=== PATIENT | female | born 1955 | race Caucasian/White ===

== ENCOUNTER 2017-03-20 15:43 | Observation (INO) ==
--- NOTE | 2017-03-20 16:38 | Emergency Department Note ---
Arrival - Arrival Chief Complaint: GI Bleed/Rectal Stated Complaint: BLOOD ED Nursing Triage Note: Pt c/o bright red blood in her stool started this am. Pt denies abd pain. Pt had C-scope on Friday. Mode of Arrival: Ambulatory Limitations: No Limitations Source: Patient Time Seen by Provider: 03/20/17 16:31 - History of Present Illness HPI Narrative: This 61-year-old white female presents with a history of 3 bloody bowel movements during the course today. Patient has a notable history of colon cancer status post resection and chemotherapy with subsequent colonoscopy [address] Agrawal which revealed no evidence of recurrence. Also notable on colonoscopy was recurrence of cecal polyps were which were removed as well as mild left-sided diverticulosis. More significant is the finding of internal hemorrhoids. Other than the bleeding the patient has no complaints whatsoever and is stable medically at this time.. Onset (ago): hour(s) (Onset 10 hours ago) Allergies/Adverse Reactions: Allergies Allergy/AdvReac Type Severity Reaction Status Date / Time naproxen [From Aleve] Allergy ANAPHYLAXIS Verified 11/22/16 13:17 Tetanus Vaccines and Toxoid Allergy ANAPHYLAXIS Verified 11/22/16 13:17 [Tetanus Vaccines & Toxoid] Home Medications: Home Medications Medication Instructions Recorded Confirmed Type Methocarbamol Tab [Robaxin Tab] 750 - 1,500 mg PO BID 04/04/16 03/20/17 History Ropinirole HCl 0.5 - 1 mg PO BEDTIME 06/04/16 03/20/17 History Allopurinol 100 mg PO QAM 03/06/17 03/20/17 History predniSONE TAB [PredniSONE] 5 - 7 mg PO QAM 03/06/17 03/20/17 History Acetaminophen [Pain Relief] 500 mg PO Q8H PRN MDD 3gm 03/14/17 03/20/17 History Gabapentin 100 - 400 mg PO BEDTIME 03/14/17 03/20/17 History Methotrexate Sodium/Pf 15 mg IM MO 03/20/17 03/20/17 History [Methotrexate 200 mg/8 ml Vial] Review of System - Review of System 12 point system: reviewed and no additional remarkable complaints except as stated - Review of System Constitutional: Present: as per HPI Gastrointestinal: Present: as per HPI Medical,Surgical,& Family Hx - Medical History Neurology: History of: Migraine No history of: Seizures HEENT: History of: Eye Problem (Wears glasses), Dental Problems (DENTURES) Rheumatology: History of;: Gout, Rheumatoid Arthritis Genitourinary: History of: Kidney Stones No history of: Bladder Problem Gastrointestinal: History of: Diverticulitis/ Diverticulosis, Esophageal Varices , GERD, Gastrointestinal Bleed, Hematochezia, Gastrointestinal Cancer, GI Problems (Anal stricture) Musculoskeletal: History of: Back/Neck Problems (Neck pain), Musculoskeletal Problems Hematology: History of: Anemia Other: History of: Cancer (Hx: Colon cancer) - Surgical History Cardiac Surgeries: Patient Denies: Cardiac Catheterization HEENT Surgeries: Surgical HX of: Tonsilectomy & Adenoidectomy Patient denies: Eye Surgery Abdominal Surgeries: Surgical HX of: Abdominal Surgery (COLON ILLEOSTOMY REVERSABLE), Colonoscopy Patient denies: Appendectomy, Cholecystectomy, Gastric Bypass Surgery, EGD, Hernia Repair Reproductive Surgeries: Surgical HX of;: Dilation and Curettage, Gynecologic Surgery, Hysterectomy, Tubal Ligation Patient denies;: Genitourinary Surgery Orthopedic Surgeries: Surgical HX of;: Orthopedic Surgery, Total Knee Replacement (BLE KNEE) - Family History Family History: Reports;: Family Cancer (brother), Family Diabetes (mother), Family Heart Disease (father), Family Stroke (Father) Denies;: Family Anesthesia Reaction, Family Hypertension, Family Psychiatric Problems - Social History Smoking Status: Never smoker Exam Physical Examination: GENERAL: Well developed, well nourished elderly white female in no acute distress. HEENT: Normocephalic. No trauma. Moist mucous membranes. EOMI. PERRLA. ENT NML NECK: Supple. No adenopathy. CARDIAC: Regular. No murmurs. Heart rate 90 CHEST: Clear to auscultation. No respiratory distress. O2 saturation 99% ABDOMEN: Soft. Nontender. Active bowel sounds. Abdomen benign at this time EXTREMITIES: No trauma. Normal ROM. No pedal edema. SKIN: No diaphoresis. No rash. NEURO: Alert. Neuro intact no focal deficits. Vital Signs: Vital Signs Temperature 97.3 F L 03/20/17 16:47 Pulse Rate 90 03/20/17 16:47 Respiratory Rate 16 03/20/17 16:47 Blood Pressure 151/106 03/20/17 16:47 O2 Sat by Pulse Oximetry 100 03/20/17 17:17 Course - Reevaluation(s) Reevaluation #1: Advised patient she would need hospitalization for overnight observation. - Consultations Consultation #1: Discussed with Dr. Enciso who advised overnight observation, but felt this was more likely a bleed post biopsy that generally occurs at this point in time with sloughing of a clot. Consultation #2: Discussed with Dr. Nicolas who deferred to the hospitalist as there was no oncologic problem at this time. Consultation #3: Discussed with hospitalist who will admit for further evaluation treatment peer Results - Labs CBC & BMP: 03/20/17 17:04 03/20/17 17:18 Labs: I reviewed the lab and noted the mild anemia. - Impressions EKG: Sinus rhythm at 82. Normal TX interval and QRS duration. Nonspecific ST changes noted. No acute injury pattern noted. - Diagnostic Findings Procedure: Chest x-ray: image reviewed by me, report reviewed by me (Normal chest) Disposition Clinical Impression: Lower GI bleed, Adeno CA of the colon treated Case discussed with: patient, patient's family Disposition: Still a Patient Condition: Guarded Time of Disposition: 18:29
--- NOTE | 2017-03-20 17:02 | XRay Report ---
2 view chest 03/20/2017 4:33 PM Indication: Shortness of breath Comparison: CT performed on March 03, 2017 0808 hours Findings: Cardiomediastinal contours are stable with no change in tube or line placement. Lungs are clear bilaterally. . No acute osseous abnormalities. Visualized upper abdomen demonstrates no acute pathology. Impression: No acute cardiopulmonary findings PROCEDURE INTERPRETED AT [facility] DEPARTMENT OF RADIOLOGY Final Report Signed by: Gerber Dillon
[2017-03-20 17:20] LABS: Basophils % 0.2 % (0.0-0.8); Hematocrit 35.4 VOL% (35.7-47.0); Hemoglobin 12.2 GM/DL (12.0-16.0); Immature Granulocytes % 0.2 %; Immature Granulocytes Absolute 0.01 #; Lymphocytes # 1.6 10*3/uL (1.4-4.0); Lymphocytes % 26.1 % (21.3-54.2); Mean Corpuscular HGB Conc 34.5 GM/DL (32-36); Mean Corpuscular Hemoglobin 30 PG (27-34); Mean Corpuscular Volume 86.8 FL (87-102); Mean Platelet Volume 10.3 FL (9.6-12.0); Monocytes # 0.3 10*3/uL (0.11-0.8); Monocytes % 5.4 % (1.7-12.7); Neutrophils # 4.2 10*3/uL (1.4-7.4); Neutrophils % 68.1 % (38.7-73.9); Platelet Count 181 T/CUMM (130-400); Red Blood Count 4.08 MC/CUMM (3.8-5.5); Red Cell Distribution Width 13.3 % (9.3-17.3); White Blood Count 6.1 T/CUMM (4-12)
--- NOTE | 2017-03-20 17:26 | EKG Report ---
Stationary ECG Study [facility] ER Test Date: 03/20/2017 5:25:28 PM Pat Name: CASSIE MADERA Department: Room: Gender: F [employer] Operator: : [id number] Requested by: Richard Donaldson Order Number: [id number] Reading MD: JENNIE MICHAUD Intervals [place] Rate: 82 P: 64 TX: 176 QRS: 80 QRSD: 92 T: -5 QT: 365 QTc: 403 Interpretive Statements SINUS RHYTHM Electronically Signed On 03-20-17 20:33:33 CDT by JENNIE MICHAUD [email or web address]
[2017-03-20 17:31] LABS: PT Patient Result 10.5 SECS
[2017-03-20 17:42] LABS: Partial Thromboplastin Time 51.2 SECS (0-40)
[2017-03-20 17:53] LABS: Alanine Aminotransferase 18 U/L (13-56); Albumin 3.4 G/DL (3.4-5.0); Alkaline Phosphatase 110 U/L (45-117); Aspartate Amino Transferase 12 U/L (0-37); Bilirubin,Total < 0.39 MG/DL (0.2-1.0); Blood Urea Nitrogen 20 MG/DL (7-18); Calcium 8.6 MG/DL (8.5-10.1); Glucose 129 MG/DL (74-106); Osmolality,Calculated 283.4 MOS/KG (273-304); Potassium 3.6 MMOL/L (3.5-5.1); Sodium 140 MMOL/L (136-145); Total Protein 6.8 G/DL (6.4-8.3); Troponin I Only < 0.015 NG/ML (0.00-0.045)
[2017-03-20] MEDS ORDERED: ACETAMINOPHEN 325 MG TABLET PO PRN (19:04)
[2017-03-20] MEDS ORDERED: ACETAMINOPHEN 500 MG TABLET PO PRN (19:09)
--- NOTE | 2017-03-20 19:16 | Hospitalist History & Physical ---
Assessment and Plan (1) GI bleed Status: Acute Current Visit: Yes (2) Arthritis Status: Acute Current Visit: Yes (3) Cancer of rectosigmoid (colon) Status: Acute Assessment and plan: Our plan for this patient 1. Admit the patient our service 2. GI consult 3. Surgery consult 4. H&H every 6 hours 3 8 5. Repeat labs in the morning 6. Reevaluate patient in the morning and adjust plans as appropriate Current Visit: No History of Present Illness Chief complaint: GIB History of present illness: Ms. Castro is a 61 year old female with past medical history significant for colon cancer and arthritis who is her normal state of health till today. Patient had a C scope done last Friday. She had multiple polyps removed at this time. 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 Patient had anastomosis May 2016 and was rechecked after initial recent section. Recent CT scan shows possible recurrence of cancer and that was the purpose of a colonoscopy at that time. Patient also has an appointment with Dr. Anaya Friday for surgical evaluation. Today she reports that with her bowel movements that she had blood in them. She called Dr. Wilson's office who is her oncologist and they recommend she come up to the ER for further evaluation. She is hemodynamically stable and I am admitting her for observation. Home Medications Medication Instructions Recorded Confirmed Type Methocarbamol Tab [Robaxin Tab] 750 - 1,500 mg PO BID 04/04/16 03/20/17 History Ropinirole HCl 0.5 - 1 mg PO BEDTIME 06/04/16 03/20/17 History Allopurinol 100 mg PO QAM 03/06/17 03/20/17 History predniSONE TAB [PredniSONE] 5 - 7 mg PO QAM 03/06/17 03/20/17 History Acetaminophen [Pain Relief] 500 mg PO Q8H PRN MDD 3gm 03/14/17 03/20/17 History Gabapentin 100 - 400 mg PO BEDTIME 03/14/17 03/20/17 History Methotrexate Sodium/Pf 15 mg IM MO 03/20/17 03/20/17 History [Methotrexate 200 mg/8 ml Vial] Allergies Allergy/AdvReac Type Severity Reaction Status Date / Time naproxen [From Aleve] Allergy ANAPHYLAXIS Verified 11/22/16 13:17 Tetanus Vaccines and Toxoid Allergy ANAPHYLAXIS Verified 11/22/16 13:17 [Tetanus Vaccines & Toxoid] Medical,Surgical,& Family Hx - Medical History Neurology: History of: Migraine No history of: Seizures HEENT: History of: Eye Problem (Wears glasses), Dental Problems (DENTURES) Rheumatology: History of;: Gout, Rheumatoid Arthritis Genitourinary: History of: Kidney Stones No history of: Bladder Problem Gastrointestinal: History of: Diverticulitis/ Diverticulosis, Esophageal Varices , GERD, Gastrointestinal Bleed, Hematochezia, Gastrointestinal Cancer, GI Problems (Anal stricture) Musculoskeletal: History of: Back/Neck Problems (Neck pain), Musculoskeletal Problems Hematology: History of: Anemia Other: History of: Cancer (Hx: Colon cancer) - Surgical History Cardiac Surgeries: Patient Denies: Cardiac Catheterization HEENT Surgeries: Surgical HX of: Tonsilectomy & Adenoidectomy Patient denies: Eye Surgery Abdominal Surgeries: Surgical HX of: Abdominal Surgery (COLON ILLEOSTOMY REVERSABLE), Colonoscopy Patient denies: Appendectomy, Cholecystectomy, Gastric Bypass Surgery, EGD, Hernia Repair Reproductive Surgeries: Surgical HX of;: Dilation and Curettage, Gynecologic Surgery, Hysterectomy, Tubal Ligation Patient denies;: Genitourinary Surgery Orthopedic Surgeries: Surgical HX of;: Orthopedic Surgery, Total Knee Replacement (BLE KNEE) - Family History Family History: Reports;: Family Cancer (brother), Family Diabetes (mother), Family Heart Disease (father), Family Stroke (Father) Denies;: Family Anesthesia Reaction, Family Hypertension, Family Psychiatric Problems - Social History Smoking Status: Never smoker Frequency of Alcohol Use: None Type of Drug Use: None 12 point system: reviewed and no additional remarkable complaints except as stated Exam - Constitutional Vitals: Period Temp Pulse Resp BP Sys/Gonsalez Pulse Ox Last 24 Hr 97.3 F-97.3 F 90-90 16-16 151-151/106-106 99-100 General appearance: over weight - Head Head exam: Present: normal inspection - Eye Eye exam: Present: EOMI Pupils: Present: KANNAN - ENT ENT exam: Present: normal exam - Neck Neck exam: Present: normal inspection - Respiratory Respiratory exam: Present: clear to auscultation bilaterally - Cardiovascular Cardiovascular exam: Present: regular rate and rhythm - GI/Abdominal GI/Abdominal exam: Present: normal bowel sounds - Extremities Exam Extremities exam: Present: normal inspection - Back Exam Back exam: Present: normal inspection - Neurological Exam Neurological exam: Present: alert, oriented X3 - Psychiatric Psychiatric exam: Present: normal affect, normal mood - Skin Skin exam: Present: normal color Results - Labs CBC & BMP: 03/20/17 17:04 03/20/17 17:18 Quality Measures - VTE Contraindication to Pharmacological VTE Prophylaxis: Active Bleeding
[2017-03-20] MEDS ORDERED: rOPINIRole 0.25 MG TABLET PO SCH (21:00)
[2017-03-20] MEDS ORDERED: GABAPENTIN 100 MG CAPSULE PO SCH (21:00)
[2017-03-21 00:51] LABS: Hematocrit 32.5 VOL% (35.7-47.0); Hemoglobin 11.2 GM/DL (12.0-16.0)
[2017-03-21 08:07] LABS: Hemoglobin 11.8 GM/DL (12.0-16.0)
[2017-03-21 08:40] LABS: Calcium 8.7 MG/DL (8.5-10.1); Osmolality,Calculated 282.3 MOS/KG (273-304)
[2017-03-21] MEDS ORDERED: PANTOPRAZOLE 40 MG TABLET PO SCH (09:00)
[2017-03-21] MEDS ORDERED: ALLOPURINOL 100 MG TABLET PO SCH (09:00)
[2017-03-21] MEDS ORDERED: predniSONE 5 MG TABLET PO SCH (09:00)
[2017-03-21 11:17] LABS: Hematocrit 34.4 VOL% (35.7-47.0); Hemoglobin 11.7 GM/DL (12.0-16.0)
--- NOTE | 2017-03-21 11:21 | Gastrointestinal Consult Note ---
Assessment and Plan (1) GI bleed Status: Acute Assessment and plan: Patient is likely to have bleeding from 1 of 3 areas: Either the rectal dilation that was done at the beginning of the case by anal dilator, the biopsies taken from the anastomotic site which failed to show any cancer, or post polypectomy bleed from the cecum that was removed by hot snare polypectomy. I suspect the latter especially if the patient was taking any sort of anti-inflammatory agents which she is denying at this time. She is certainly been stable during her hospital stay and could be discharged at this time. I would like to obtain a tagged red blood cell scan to make sure that this is negative prior to letting her go out the door. If positive this may show where the bleeding is coming from, likely would still watch her and see if this does not stop on its own giving appropriate time to heal. I doubt this will prove to be a significant bleed given the lack of drop in hematocrit. Current Visit: Yes (2) Personal history of colon cancer, stage III Status: Acute Assessment and plan: Patient recently had biopsies done at the anastomotic site which appears to be clean. She may require surgical resection of an additional node in the rectal region as per Dr. Wilson. She will require repeat colonoscopy in 3 years--both for the initial cancer and for the tubulovillous polyp removed from the cecum. Current Visit: Yes (3) Personal history of colonic polyps Status: Acute Assessment and plan: This patient has a polyp that was noted in the cecum that was tubulovillous again this will require repeat colonoscopy in 3 years. Current Visit: Yes (4) Acute posthemorrhagic anemia Status: Acute Current Visit: No (5) Anal stenosis Status: Acute Assessment and plan: This required anal dilation during her colonoscopy up to 2 cm at this point. This may be a bleeding source. Patient should watch her ability to have spontaneous bowel movements and be redilated in the future she requires this. Current Visit: No History of Present Illness Chief complaint: GI bleeding post colonoscopy. History of present illness: Ms. Castro is a 61 year old female who has a history of stage IIIB N1 MX invasive adenocarcinoma of the lower sigmoid colon with 17 lymph nodes involved postchemotherapy in May 2016 rechecked on colonoscopy as recently as . Patient had multiple bowel movements 2 days after the procedure that appeared to be frankly bloody and were concerning to the patient and she presented to the emergency room with admission to observe her for further blood loss yesterday. Note that this patient had also undergone a rectal dilation due to anal stenosis and had anastomotic irritation necessitating biopsies in her sigmoid as well. 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 The patient is not feeling any pain and otherwise feels quite normal. Her hematocrit has been rechecked on several every 6 hours since her arrival and has remained in the 34- 35% range through most of her hospital stay. There was a single value that was 32.5 but her latest has been 34.4%. This patient has not had any severe cramping or other complaints. She is wondering if she might be able to be discharged today. I think I would like to obtain a tagged red blood cell scan to look for source for the bleeding before we potentially let her go home particularly if this is a post polypectomy bleed as opposed to rectal dilation bleed or biopsy bleed. I suspect the latter to given the lack of loss of blood seen on serial hematocrit/hemoglobin's. Home Medications Medication Instructions Recorded Confirmed Type Methocarbamol Tab [Robaxin Tab] 750 - 1,500 mg PO BID 04/04/16 03/20/17 History Ropinirole HCl 0.5 - 1 mg PO BEDTIME 06/04/16 03/20/17 History Allopurinol 100 mg PO QAM 03/06/17 03/20/17 History predniSONE TAB [PredniSONE] 5 - 7 mg PO QAM 03/06/17 03/20/17 History Acetaminophen [Pain Relief] 500 mg PO Q8H PRN MDD 3gm 03/14/17 03/20/17 History Gabapentin 100 - 400 mg PO BID 03/14/17 03/20/17 History Methotrexate Sodium/Pf 0.6 ml SUBCUT DIRECTED 03/20/17 03/20/17 History [Methotrexate 200 mg/8 ml Vial] Allergies Allergy/AdvReac Type Severity Reaction Status Date / Time naproxen [From Aleve] Allergy ANAPHYLAXIS Verified 11/22/16 13:17 Tetanus Vaccines and Toxoid Allergy ANAPHYLAXIS Verified 11/22/16 13:17 [Tetanus Vaccines & Toxoid] Medical,Surgical,& Family Hx - Medical History Psychological: No history of: Anxiety Disorders, ADHD, Behavior Problems, Bipolar Disorder, Depression, Previous Suicide Attempt, Psychiatric/Substance Abuse Tx, Schizophrenia, Violent Behavior, Psychiatric Problems Neurology: History of: Migraine No history of: Seizures HEENT: History of: Eye Problem (Wears glasses), Dental Problems (DENTURES) Rheumatology: History of;: Gout, Rheumatoid Arthritis Genitourinary: History of: Kidney Stones No history of: Bladder Problem Gastrointestinal: History of: Diverticulitis/ Diverticulosis, Esophageal Varices , GERD, Gastrointestinal Bleed, Hematochezia, Gastrointestinal Cancer, GI Problems (Anal stricture) Musculoskeletal: History of: Back/Neck Problems (Neck pain), Musculoskeletal Problems Hematology: History of: Anemia Other: History of: Cancer (Hx: Colon cancer) - Surgical History Cardiac Surgeries: Patient Denies: Cardiac Catheterization HEENT Surgeries: Surgical HX of: Tonsilectomy & Adenoidectomy Patient denies: Eye Surgery Abdominal Surgeries: Surgical HX of: Abdominal Surgery (COLON ILLEOSTOMY REVERSABLE), Colonoscopy Patient denies: Appendectomy, Cholecystectomy, Gastric Bypass Surgery, EGD, Hernia Repair Reproductive Surgeries: Surgical HX of;: Dilation and Curettage, Gynecologic Surgery, Hysterectomy, Tubal Ligation Patient denies;: Genitourinary Surgery Orthopedic Surgeries: Surgical HX of;: Orthopedic Surgery, Total Knee Replacement (BLE KNEE) - Family History Family History: Reports;: Family Cancer (brother), Family Diabetes (mother), Family Heart Disease (father), Family Stroke (Father) Denies;: Family Anesthesia Reaction, Family Hypertension, Family Psychiatric Problems - Social History Smoking Status: Never smoker Frequency of Alcohol Use: None Type of Drug Use: None Review of systems: Constitutional: Denies fever, chills, nausea, and vomiting Eyes: Denies dry eyes, and scleral icterus HENT: Denies headaches Cardiovascular: Denies acute chest pain and claudication Respiratory: Denies shortness of breath, wheezing, and difficulty breathing, denies cough Gastrointestinal: As noted in the HPI Genitourinary: Denies dysuria and hematuria Neurologic: Denies vision loss, and loss of sensation Musculoskeletal: The patient does have some joint swelling, joint stiffness, and muscular weakness Psychiatric: Denies depression and bird symptoms Heme-Lymph: Denies easy bruising, lymph node enlargement or tenderness, night sweats, excessive bleeding Allergies-immunologic: Denies pruritus and rhinorrhea Exam - Constitutional Vitals: Period Temp Pulse Resp BP Sys/Gonsalez Pulse Ox Last 24 Hr 96.8 F-97.8 F 72-90 16-20 135-151/69-106 97-100 General appearance: no acute distress - Head Head exam: Present: normocephalic - Eye Eye exam: Present: EOMI Pupils: Present: KANNAN - Respiratory Respiratory exam: Present: clear to auscultation bilaterally. Absent: wheezes - Cardiovascular Cardiovascular exam: Present: regular rate and rhythm - GI/Abdominal GI/Abdominal exam: Present: normal bowel sounds, soft, other (Multiple abdominal scars noted). Absent: distended, guarding, tenderness, rebound - Extremities Exam Extremities exam: Present: edema (Trace) - Neurological Exam Neurological exam: Present: alert, oriented X3 - Psychiatric Psychiatric exam: Present: normal affect, normal mood Results - Labs CBC & BMP: 03/21/17 07:55 03/21/17 07:55 Quality Measures - VTE Contraindication to Pharmacological VTE Prophylaxis: Active Bleeding
--- NOTE | 2017-03-21 11:23 | General Surgery Consult Note ---
Assessment and Plan (1) GI bleed Status: Acute Current Visit: Yes (2) Cancer of rectosigmoid (colon) Status: Acute Assessment and plan: Patient has a GIB bleed likely associated with polypectomy from colonoscopy and or rectal dilatation. Her H&H is currently stable. Further recognitions per Dr. Agrawal. Patient is undergoing workup for possible recurrence of her colon cancer which is being performed outpatient, the patient can follow with Drs. Wilson and Héctor as previously established after her PET scan. There are no surgical indications at this time. Current Visit: No History of Present Illness Chief complaint: Bloody stool History of present illness: Ms. 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 The patient had a colonoscopy performed on 03/14/2017 with polyp resection and rectal dilatation as well as findings of diverticulosis and internal hemorrhoids. She reports 4 bloody bowel movements of normal caliber otherwise. She has had no bowel movements today. Patient reports that she is pain-free and tolerating oral intake without difficulty. No signs or symptoms of orthostasis. Hemoglobin and hematocrit have been stable. The patient did recently have a CT scan with concern for recurrence and that is why the colonoscopy was performed, and biopsy was obtained of the anastomosis site with out findings of recurrence. Her CEA is noted to be recently elevated and there is concern for recurrence, but has is not been identified within the colon so there is a PET scan scheduled for 03/31/2017. Dr. Lawton involves her in collaboration on this case and have plans to follow-up post PET scan for further assessment and recommendations. Home Medications Medication Instructions Recorded Confirmed Type Methocarbamol Tab [Robaxin Tab] 750 - 1,500 mg PO BID 04/04/16 03/20/17 History Ropinirole HCl 0.5 - 1 mg PO BEDTIME 06/04/16 03/20/17 History Allopurinol 100 mg PO QAM 03/06/17 03/20/17 History predniSONE TAB [PredniSONE] 5 - 7 mg PO QAM 03/06/17 03/20/17 History Acetaminophen [Pain Relief] 500 mg PO Q8H PRN MDD 3gm 03/14/17 03/20/17 History Gabapentin 100 - 400 mg PO BID 03/14/17 03/20/17 History Methotrexate Sodium/Pf 0.6 ml SUBCUT DIRECTED 03/20/17 03/20/17 History [Methotrexate 200 mg/8 ml Vial] Allergies Allergy/AdvReac Type Severity Reaction Status Date / Time naproxen [From Aleve] Allergy ANAPHYLAXIS Verified 11/22/16 13:17 Tetanus Vaccines and Toxoid Allergy ANAPHYLAXIS Verified 11/22/16 13:17 [Tetanus Vaccines & Toxoid] Medical,Surgical,& Family Hx - Medical History Psychological: No history of: Anxiety Disorders, ADHD, Behavior Problems, Bipolar Disorder, Depression, Previous Suicide Attempt, Psychiatric/Substance Abuse Tx, Schizophrenia, Violent Behavior, Psychiatric Problems Neurology: History of: Migraine No history of: Seizures HEENT: History of: Eye Problem (Wears glasses), Dental Problems (DENTURES) Rheumatology: History of;: Gout, Rheumatoid Arthritis Genitourinary: History of: Kidney Stones No history of: Bladder Problem Gastrointestinal: History of: Diverticulitis/ Diverticulosis, Esophageal Varices , GERD, Gastrointestinal Bleed, Hematochezia, Gastrointestinal Cancer, GI Problems (Anal stricture) Musculoskeletal: History of: Back/Neck Problems (Neck pain), Musculoskeletal Problems Hematology: History of: Anemia Other: History of: Cancer (Hx: Colon cancer) - Surgical History Cardiac Surgeries: Patient Denies: Cardiac Catheterization HEENT Surgeries: Surgical HX of: Tonsilectomy & Adenoidectomy Patient denies: Eye Surgery Abdominal Surgeries: Surgical HX of: Abdominal Surgery (COLON ILLEOSTOMY REVERSABLE), Colonoscopy Patient denies: Appendectomy, Cholecystectomy, Gastric Bypass Surgery, EGD, Hernia Repair Reproductive Surgeries: Surgical HX of;: Dilation and Curettage, Gynecologic Surgery, Hysterectomy, Tubal Ligation Patient denies;: Genitourinary Surgery Orthopedic Surgeries: Surgical HX of;: Orthopedic Surgery, Total Knee Replacement (BLE KNEE) - Family History Family History: Reports;: Family Cancer (brother), Family Diabetes (mother), Family Heart Disease (father), Family Stroke (Father) Denies;: Family Anesthesia Reaction, Family Hypertension, Family Psychiatric Problems - Social History Smoking Status: Never smoker Frequency of Alcohol Use: None Type of Drug Use: None - Constitutional Constitutional: Absent: chills, fever(s) - Cardiovascular Cardiovascular: Absent: chest pain at rest, chest pain with activity, dyspnea on exertion, orthopnea - Respiratory Respiratory: Absent: cough, wheezing - Gastrointestinal Gastrointestinal: Present: as per HPI Exam - Constitutional Vitals: Period Temp Pulse Resp BP Sys/Gonsalez Pulse Ox Last 24 Hr 96.8 F-97.8 F 72-90 16-20 135-151/69-106 97-100 General appearance: no acute distress - Respiratory Respiratory exam: Present: clear to auscultation bilaterally - Cardiovascular Cardiovascular exam: Present: RRR - GI/Abdominal GI/Abdominal exam: Present: normal bowel sounds, soft. Absent: distended, guarding, tenderness - Neurological Exam Neurological exam: Present: alert, oriented X3 Speech: Present: normal - Skin Skin exam: Present: normal color, warm Quality Measures - VTE Contraindication to Pharmacological VTE Prophylaxis: Active Bleeding Results - Labs CBC & BMP: 03/21/17 11:02 03/21/17 07:55
--- NOTE | 2017-03-21 14:00 | Nuclear Medicine Report ---
NM GI bleeding Indication: Colonoscopy. Rectal bleeding afterwards. TAGGED RED CELL BLEEDING SCAN Technique: 25 mCi technetium 99 labeled PYP was injected for in vivo tagging of RBCs. Planar images of the abdomen and pelvis were then obtained. Comparison: None. Findings: No abnormal accumulation of radiotracer seen within the bowel. Impression: No evidence of GI bleed. PROCEDURE INTERPRETED AT [facility] DEPARTMENT OF RADIOLOGY Final Report Signed by: Dell Brady M.D.
--- NOTE | 2017-03-21 15:22 | Discharge Summary ---
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 Patient presented with rectal bleeding and had multiple bowel movements 2 days after the procedure that appeared to be frankly bloody and were concerning to the patient and she presented to the emergency room with admission to observe her for further blood loss yesterday. Note that this patient had also undergone a rectal dilation due to anal stenosis and had anastomotic irritation necessitating biopsies in her sigmoid as well. 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 The patient is not feeling any pain and otherwise feels quite normal. Her hematocrit has been rechecked on several every 6 hours since her arrival and has remained in the 34-35% range through most of her hospital stay. There was a single value that was 32.5 but her latest has been 34.4%. This patient has not had any severe cramping or other complaints. The patient was admitted to the hospital. GI were consulted. She underwent bleeding scan which was unremarkable, hematocrit has been stable. She had a recent elevated CEA and will get a PET scan as an outpatient. She is being discharged home in stable condition. - Time spent with patient Time with patient DS: Less than 30 minutes Diagnosis - Discharge Diagnosis (1) GI bleed Status: Resolved Discharge Plan - Discharge Data Condition at Discharge: Stable Discharge Diet: advance to your usual diet Activity: resume usual activities as tolerated Hygiene: no restrictions Weight Bearing at Discharge: full weight bearing Contact your physician if you experience:: Bleeding - Discharge Medications Continue Methocarbamol Tab [Robaxin Tab] 750 - 1,500 mg PO BID Ropinirole HCl 0.5 - 1 mg PO BEDTIME predniSONE TAB [PredniSONE] 5 - 7 mg PO QAM Acetaminophen [Pain Relief] 500 mg PO Q8H PRN MDD 3gm PRN Reason: Pain Methotrexate Sodium/Pf [Methotrexate 200 mg/8 ml Vial] 0.6 ml SUBCUT DIRECTED Allopurinol 100 mg PO QAM Gabapentin 100 - 400 mg PO BID - Follow Up or Referral - Forms/Instructions Exam - Constitutional Vitals: Period Temp Pulse Resp BP Sys/Gonsalez Pulse Ox Last 24 Hr 96.8 F-97.8 F 72-90 16-20 135-151/69-106 97-100 Exam: General: No Acute Distress HEENT: Normocephalic, atraumatic, Extra ocular movements intact Neck: Supple, No JVD Chest: Clear to auscultation B/L CV: S1 + S2 audible without murmur, gallop or rub Abd: soft, NT, Non-distended, BS + Ext: No edema Skin: No purpura, bruising or rash Rheumatologic: No Joint deformities Neurologic: Strength 5/5 all extremities, no gross sensory deficits Discharge Results Labs on day of discharge: Labs from last 24 hours 03/21/17 03/21/17 03/21/17 11:02 07:55 07:55 WBC RBC Hgb 11.7 L 11.8 L Hct 34.4 L 35.0 L MCV MCH MCHC RDW Plt Count MPV Neut % (Auto) Lymph % (Auto) [place] % (Auto) Eos % (Auto) Baso % (Auto) Neut # (Auto) Lymph # (Auto) [place] # (Auto) Eos # (Auto) Baso # (Auto) Immature Gran % Nucleated RBC % Immature Gran # Nucleated RBCs # Immature Plt Fraction INR PT Patient/Control Mix Circ Anticoag PTT Sodium 141 Potassium 4.0 Chloride 106 Carbon Dioxide 28 Anion Gap 11.0 BUN 19 H Creatinine 1.10 H GFR Calculation 61 BUN/Creatinine Ratio 17.00 Glucose 94 Calculated Osmolality 282.3 Calcium 8.7 Total Bilirubin AST ALT Alkaline Phosphatase Total Creatine Kinase CK-MB (CK-2) Troponin I Total Protein Albumin Globulin Albumin/Globulin Ratio Blood Type Antibody Screen 03/20/17 03/20/17 03/20/17 23:44 17:18 17:18 WBC RBC Hgb 11.2 L Hct 32.5 L MCV MCH MCHC RDW Plt Count MPV Neut % (Auto) Lymph % (Auto) [place] % (Auto) Eos % (Auto) Baso % (Auto) Neut # (Auto) Lymph # (Auto) [place] # (Auto) Eos # (Auto) Baso # (Auto) Immature Gran % Nucleated RBC % Immature Gran # Nucleated RBCs # Immature Plt Fraction INR PT Patient/Control Mix Circ Anticoag PTT Sodium 140 Potassium 3.6 Chloride 105 Carbon Dioxide 28 Anion Gap 10.6 BUN 20 H Creatinine 1.20 H GFR Calculation 56 BUN/Creatinine Ratio 16.00 Glucose 129 H Calculated Osmolality 283.4 Calcium 8.6 Total Bilirubin < 0.39 AST 12 ALT 18 Alkaline Phosphatase 110 Total Creatine Kinase 57 CK-MB (CK-2) < 1.0 Troponin I < 0.015 Total Protein 6.8 Albumin 3.4 Globulin 3.4 Albumin/Globulin Ratio 1.0 L Blood Type O POSITIVE Antibody Screen Negative 03/20/17 03/20/17 17:18 17:04 WBC 6.1 RBC 4.08 Hgb 12.2 Hct 35.4 L MCV 86.8 L MCH 30 MCHC 34.5 RDW 13.3 Plt Count 181 MPV 10.3 Neut % (Auto) 68.1 Lymph % (Auto) 26.1 [place] % (Auto) 5.4 Eos % (Auto) 0.0 Baso % (Auto) 0.2 Neut # (Auto) 4.2 Lymph # (Auto) 1.6 [place] # (Auto) 0.3 Eos # (Auto) 0.0 Baso # (Auto) 0.0 Immature Gran % 0.2 Nucleated RBC % 0.0 Immature Gran # 0.01 Nucleated RBCs # 0.00 Immature Plt Fraction 0.0 INR 1.0 PT Patient/Control Mix 10.5 Circ Anticoag PTT 51.2 H D Sodium Potassium Chloride Carbon Dioxide Anion Gap BUN Creatinine GFR Calculation BUN/Creatinine Ratio Glucose Calculated Osmolality Calcium Total Bilirubin AST ALT Alkaline Phosphatase Total Creatine Kinase CK-MB (CK-2) Troponin I Total Protein Albumin Globulin Albumin/Globulin Ratio Blood Type Antibody Screen DS: Provider Date of admission: 03/20/17 19:04 Primary care physician: . No PCP Attending physician on admission: Dell Arreaga MD Consults: 03/20/17 19:04 Consult to Physician [CONS] Routine Comment: Consulting Provider: Lorenzo Lawton Person Notified: [place] Date Notified: 03/21/17 Time Notified: 09:08 Consult to Physician [CONS] Routine Comment: GIB after Cscope Consulting Provider: Fernie Agrawal Person Notified: [place] Date Notified: 03/21/17 Time Notified: 10:08 03/20/17 21:45 Consult to Dietitian [CONS] Routine Reason for Dietitian: Other Discharging clinician: Ana Gallo MD
[2017-03-21 15:58] VITALS: BP 161/84
== END 2017-03-21 16:15 | disposition home or self-care (01) ==
LOC: N.ED 15:43 → N.EDINP 19:04 → INTOOBSV 19:04 → SUATTDRO 19:04 → N.5E 19:46
PROVIDERS: ADMIT Internal Medicine; ATTEND Internal Medicine Infectious Disease

== ENCOUNTER 2017-05-05 09:19 | Inpatient (IN) ==
[2017-05-05] MEDS ORDERED: LACTATED RINGERS 1,000 ML IV ONE (10:53)
[2017-05-05] MEDS ORDERED: MORPHINE 2 MG/1 ML SYRINGE IV PRN (10:55)
[2017-05-05 11:54] LABS: Basophils % 0.1 % (0.0-0.8); Eosinophils % 0.1 % (0.00-10.9); Hemoglobin 14.3 GM/DL (12.0-16.0); Immature Granulocytes % 0.3 %; Immature Granulocytes Absolute 0.02 #; Lymphocytes # 0.9 10*3/uL (1.4-4.0); Lymphocytes % 13.2 % (21.3-54.2); Mean Corpuscular HGB Conc 32.5 GM/DL (32-36); Mean Corpuscular Hemoglobin 28 PG (27-34); Mean Corpuscular Volume 87.1 FL (87-102); Mean Platelet Volume 10.8 FL (9.6-12.0); Monocytes # 0.7 10*3/uL (0.11-0.8); Monocytes % 9.8 % (1.7-12.7); Neutrophils # 5.4 10*3/uL (1.4-7.4); Neutrophils % 76.5 % (38.7-73.9); Platelet Count 147 T/CUMM (130-400); Red Blood Count 5.05 MC/CUMM (3.8-5.5); Red Cell Distribution Width 12.9 % (9.3-17.3)
[2017-05-05 12:19] LABS: Calcium 9.5 MG/DL (8.5-10.1); Osmolality,Calculated 283.1 MOS/KG (273-304); Potassium 3.7 MMOL/L (3.5-5.1)
[2017-05-05 12:24] LABS: Albumin 3.8 G/DL (3.4-5.0); Bilirubin,Direct 0.13 MG/DL (0.0-0.20); Bilirubin,Indirect 0.9 MG/DL (0.0-1.0); Total Protein 7.1 G/DL (6.4-8.3)
[2017-05-05] MEDS ORDERED: ONDANSETRON 4 MG/2 ML VIAL IV PRN (12:51)
[2017-05-05] MEDS ORDERED: ONDANSETRON 4 MG/2 ML VIAL ONE ×2 (12:53→19:20)
[2017-05-05] MEDS: PANTOPRAZOLE 40 MG VIAL IV SCH (13:27)
[2017-05-05] MEDS ORDERED: INFLUENZA VIRUS VACCINE 0.5 ML SYRINGE IM ONE (13:33)
[2017-05-05 14:00] LABS: Apearance,Urine Slightly Hazy (Clear); Bilirubin,Urine Negative (Negative); Blood, Urine Large mg/dL (Negative); Glucose,Urine (UA) Negative (Negative); Hyaline Casts,Urine 12 /LPF (0-3); Ketones,Urine 20 mg/dL (Negative); Mucus,Urine Many /LPF (Occasional); Nitrite,Urine Negative (Negative); Protein,Urine 100 MG/DL; RBC,Urine 71 /HPF (0-4); Squamous Epithelial Cell,Urine Occasional /HPF (0-10); Urine Color Amber (Yellow); Urine Specific Gravity 1.027 (1.001-1.035); Urine Urobilinogen < 2.0 EU/DL (0.2-1.0); WBC,Urine 17 /HPF (0-6)
[2017-05-05] MEDS ORDERED: METHYLENE BLUE 10 ML VIAL IV ONE ×2 (17:38→17:57)
[2017-05-05 18:55] LABS: Apearance,Urine Slightly Hazy (Clear); Bilirubin,Urine Negative (Negative); Blood, Urine Large mg/dL (Negative); Glucose,Urine (UA) Negative (Negative); Ketones,Urine Negative (Negative); Mucus,Urine Occasional /LPF (Occasional); Nitrite,Urine Negative (Negative); Protein,Urine Negative; RBC,Urine 83 /HPF (0-4); Urine Color Yellow (Yellow); Urine Specific Gravity 1.053 (1.001-1.035); Urine Urobilinogen < 2.0 EU/DL (0.2-1.0); WBC,Urine 4 /HPF (0-6)
[2017-05-05] MEDS ORDERED: NALOXONE 0.4 MG/ML VIAL IV PRN (19:07)
[2017-05-05] MEDS ORDERED: SEVOFLURANE 1 UNIT/15 MINUTE INH ONE (19:19)
[2017-05-05] MEDS ORDERED: PROPOFOL 200 MG/20 ML VIAL IV ONE (19:19)
[2017-05-05] MEDS ORDERED: fentaNYL 100 MCG/2 ML VIAL ONE (19:20)
[2017-05-05] MEDS ORDERED: NEOSTIGMINE 10 MG/10 ML VIAL ONE (19:20)
[2017-05-05] MEDS ORDERED: ROCURONIUM 100 MG/10 ML VIAL IV ONE (19:20)
[2017-05-05] MEDS ORDERED: SUCCINYLCHOLINE 200 MG/10 ML VIAL ONE (19:20)
[2017-05-05] MEDS ORDERED: LACTATED RINGERS 2,000 ML IV ONE (19:20)
[2017-05-05] MEDS ORDERED: MIDAZOLAM 2 MG/2 ML VIAL ONE (19:20)
[2017-05-05] MEDS ORDERED: GLYCOPYRROLATE 0.4 MG/2 ML VIAL ONE (19:20)
[2017-05-05] MEDS: LACTATED RINGERS 1,000 ML IV SCH ×3 (19:40→22:07)
[2017-05-05] MEDS ORDERED: HYDROmorphone PCA 30 MG/30 ML SYRINGE IV ONE (19:44)
[2017-05-05] MEDS: HYDROmorphone PCA 30 MG/30 ML SYRINGE IV SCH (19:54)
[2017-05-05] MEDS: rOPINIRole 0.25 MG TABLET PO SCH (21:32)
[2017-05-06] MEDS: LACTATED RINGERS 1,000 ML IV SCH ×3 (04:58→21:44)
[2017-05-06 06:33] LABS: Basophils % 0.2 % (0.0-0.8); Hematocrit 38.9 VOL% (35.7-47.0); Hemoglobin 12.9 GM/DL (12.0-16.0); Immature Granulocytes % 0.4 %; Immature Granulocytes Absolute 0.06 #; Lymphocytes # 0.6 10*3/uL (1.4-4.0); Lymphocytes % 4.2 % (21.3-54.2); Mean Corpuscular HGB Conc 33.2 GM/DL (32-36); Mean Corpuscular Hemoglobin 29 PG (27-34); Mean Corpuscular Volume 87.4 FL (87-102); Mean Platelet Volume 11.2 FL (9.6-12.0); Monocytes # 1.5 10*3/uL (0.11-0.8); Monocytes % 11.4 % (1.7-12.7); Neutrophils # 11.3 10*3/uL (1.4-7.4); Neutrophils % 83.8 % (38.7-73.9); Platelet Count 138 T/CUMM (130-400); Red Blood Count 4.45 MC/CUMM (3.8-5.5); Red Cell Distribution Width 13.2 % (9.3-17.3); White Blood Count 13.5 T/CUMM (4-12)
[2017-05-06 06:55] LABS: Band Neutrophils 1 % (0-10); Calcium 7.9 MG/DL (8.5-10.1); Giant Platelets Few; Hypochromasia 1+; Lymphocytes 1 % (20-55); Osmolality,Calculated 280.4 MOS/KG (273-304); Ovalocytes Slight; Platelet Estimate Normal; Potassium 3.7 MMOL/L (3.5-5.1); Segmented Neutrophils 87 % (50-85); Total Cells Counted 100
[2017-05-06] MEDS: PANTOPRAZOLE 40 MG VIAL IV SCH (11:55)
[2017-05-06] MEDS: ALLOPURINOL 100 MG TABLET PO SCH (12:05)
[2017-05-06] MEDS: predniSONE 1 MG TABLET PO SCH (12:05)
[2017-05-06] MEDS: ALVIMOPAN 12 MG CAPSULE PO SCH (21:34)
[2017-05-06] MEDS: rOPINIRole 0.25 MG TABLET PO SCH (21:34)
[2017-05-07 06:12] LABS: Basophils % 0.2 % (0.0-0.8); Eosinophils # 0.1 10*3/uL (0.0-0.87); Eosinophils % 0.8 % (0.00-10.9); Hematocrit 32.8 VOL% (35.7-47.0); Hemoglobin 10.5 GM/DL (12.0-16.0); Immature Granulocytes % 0.8 %; Immature Granulocytes Absolute 0.08 #; Lymphocytes # 0.9 10*3/uL (1.4-4.0); Lymphocytes % 8.6 % (21.3-54.2); Mean Corpuscular Hemoglobin 28 PG (27-34); Mean Corpuscular Volume 88.4 FL (87-102); Mean Platelet Volume 11.3 FL (9.6-12.0); Monocytes # 1.1 10*3/uL (0.11-0.8); Monocytes % 10.8 % (1.7-12.7); Neutrophils # 8.2 10*3/uL (1.4-7.4); Neutrophils % 78.8 % (38.7-73.9); Platelet Count 112 T/CUMM (130-400); Red Blood Count 3.71 MC/CUMM (3.8-5.5); Red Cell Distribution Width 13.2 % (9.3-17.3); White Blood Count 10.5 T/CUMM (4-12)
[2017-05-07 06:35] LABS: Calcium 8.2 MG/DL (8.5-10.1); Osmolality,Calculated 277.5 MOS/KG (273-304); Potassium 3.8 MMOL/L (3.5-5.1)
[2017-05-07] MEDS: ALVIMOPAN 12 MG CAPSULE PO SCH ×2 (09:21→21:03)
[2017-05-07] MEDS: ALLOPURINOL 100 MG TABLET PO SCH (09:21)
[2017-05-07] MEDS: predniSONE 1 MG TABLET PO SCH (09:21)
[2017-05-07] MEDS: PANTOPRAZOLE 40 MG VIAL IV SCH (09:21)
[2017-05-07] MEDS: DEXT 5% NACL 0.45% KCL 20 MEQ 20 MEQ/1,000 ML BAG IV SCH ×2 (15:39→19:28)
[2017-05-07] MEDS: LACTATED RINGERS 1,000 ML IV SCH (15:40)
[2017-05-07] MEDS: HYDROmorphone PCA 30 MG/30 ML SYRINGE IV SCH ×2 (19:27→21:19)
[2017-05-07] MEDS: rOPINIRole 0.25 MG TABLET PO SCH (21:18)
[2017-05-08] MEDS: DEXT 5% NACL 0.45% KCL 20 MEQ 20 MEQ/1,000 ML BAG IV SCH ×6 (01:56→21:51)
[2017-05-08 05:10] LABS: Basophils % 0.2 % (0.0-0.8); Eosinophils # 0.1 10*3/uL (0.0-0.87); Eosinophils % 1.4 % (0.00-10.9); Hematocrit 32.7 VOL% (35.7-47.0); Hemoglobin 10.6 GM/DL (12.0-16.0); Immature Granulocytes % 0.4 %; Immature Granulocytes Absolute 0.03 #; Lymphocytes % 12.3 % (21.3-54.2); Mean Corpuscular HGB Conc 32.4 GM/DL (32-36); Mean Corpuscular Hemoglobin 29 PG (27-34); Mean Corpuscular Volume 88.9 FL (87-102); Monocytes # 0.8 10*3/uL (0.11-0.8); Monocytes % 9.2 % (1.7-12.7); Neutrophils # 6.2 10*3/uL (1.4-7.4); Neutrophils % 76.5 % (38.7-73.9); Platelet Count 137 T/CUMM (130-400); Red Blood Count 3.68 MC/CUMM (3.8-5.5); White Blood Count 8.1 T/CUMM (4-12)
[2017-05-08 05:42] LABS: Calcium 8.2 MG/DL (8.5-10.1)
[2017-05-08 05:43] LABS: Osmolality,Calculated 278.4 MOS/KG (273-304); Potassium 4.1 MMOL/L (3.5-5.1)
[2017-05-08] MEDS: predniSONE 1 MG TABLET PO SCH (08:34)
[2017-05-08] MEDS: ALLOPURINOL 100 MG TABLET PO SCH (08:34)
[2017-05-08] MEDS: PANTOPRAZOLE 40 MG VIAL IV SCH (08:34)
[2017-05-08] MEDS: ALVIMOPAN 12 MG CAPSULE PO SCH ×2 (08:34→20:39)
[2017-05-08] MEDS: ENOXAPARIN 40 MG/0.4 ML SYRINGE SUBCUT SCH (12:04)
[2017-05-08] MEDS: rOPINIRole 0.25 MG TABLET PO SCH (20:39)
[2017-05-08] MEDS: HYDROmorphone PCA 30 MG/30 ML SYRINGE IV SCH (21:51)
[2017-05-09] MEDS: DEXT 5% NACL 0.45% KCL 20 MEQ 20 MEQ/1,000 ML BAG IV SCH ×5 (00:43→21:52)
[2017-05-09] MEDS: predniSONE 1 MG TABLET PO SCH (08:58)
[2017-05-09] MEDS: PANTOPRAZOLE 40 MG VIAL IV SCH (08:58)
[2017-05-09] MEDS: ALLOPURINOL 100 MG TABLET PO SCH (08:59)
[2017-05-09] MEDS: ALVIMOPAN 12 MG CAPSULE PO SCH ×2 (08:59→21:51)
[2017-05-09 09:09] LABS: Basophils % 0.3 % (0.0-0.8); Eosinophils # 0.1 10*3/uL (0.0-0.87); Eosinophils % 1.8 % (0.00-10.9); Hematocrit 31.4 VOL% (35.7-47.0); Hemoglobin 10.2 GM/DL (12.0-16.0); Immature Granulocytes % 0.7 %; Immature Granulocytes Absolute 0.04 #; Lymphocytes # 0.6 10*3/uL (1.4-4.0); Lymphocytes % 10.4 % (21.3-54.2); Mean Corpuscular HGB Conc 32.5 GM/DL (32-36); Mean Corpuscular Hemoglobin 28 PG (27-34); Mean Corpuscular Volume 86.7 FL (87-102); Mean Platelet Volume 10.4 FL (9.6-12.0); Monocytes # 0.7 10*3/uL (0.11-0.8); Neutrophils # 4.6 10*3/uL (1.4-7.4); Neutrophils % 74.8 % (38.7-73.9); Platelet Count 146 T/CUMM (130-400); Red Blood Count 3.62 MC/CUMM (3.8-5.5); Red Cell Distribution Width 12.6 % (9.3-17.3); White Blood Count 6.1 T/CUMM (4-12)
[2017-05-09 09:40] LABS: Calcium 8.3 MG/DL (8.5-10.1); Osmolality,Calculated 276.5 MOS/KG (273-304); Potassium 3.8 MMOL/L (3.5-5.1)
[2017-05-09] MEDS: ENOXAPARIN 40 MG/0.4 ML SYRINGE SUBCUT SCH (11:38)
[2017-05-09] MEDS ORDERED: HYDROmorphone 2 MG/1 ML VIAL IV PRN (13:57)
[2017-05-09] MEDS: rOPINIRole 0.25 MG TABLET PO SCH (21:51)
[2017-05-10 04:00] LABS: Calcium 8.6 MG/DL (8.5-10.1); Potassium 3.9 MMOL/L (3.5-5.1)
[2017-05-10] MEDS: DEXT 5% NACL 0.45% KCL 20 MEQ 20 MEQ/1,000 ML BAG IV SCH (04:35)
[2017-05-10] MEDS: predniSONE 1 MG TABLET PO SCH (10:05)
[2017-05-10] MEDS: ALVIMOPAN 12 MG CAPSULE PO SCH ×2 (10:05→21:07)
[2017-05-10] MEDS: ALLOPURINOL 100 MG TABLET PO SCH (10:05)
[2017-05-10] MEDS: PANTOPRAZOLE 40 MG VIAL IV SCH (10:05)
[2017-05-10] MEDS: ENOXAPARIN 40 MG/0.4 ML SYRINGE SUBCUT SCH (11:14)
[2017-05-10] MEDS: rOPINIRole 0.25 MG TABLET PO SCH (21:07)
[2017-05-11] MEDS: ALLOPURINOL 100 MG TABLET PO SCH (09:57)
[2017-05-11] MEDS: predniSONE 1 MG TABLET PO SCH (09:57)
[2017-05-11] MEDS: ALVIMOPAN 12 MG CAPSULE PO SCH ×2 (09:58→20:54)
[2017-05-11] MEDS: ENOXAPARIN 40 MG/0.4 ML SYRINGE SUBCUT SCH (11:16)
[2017-05-11] MEDS: PANTOPRAZOLE 40 MG VIAL IV SCH (14:16)
[2017-05-11] MEDS ORDERED: FLUCONAZOLE INJ 100 MG in IV BAG 1 EACH IV ONE (17:24)
[2017-05-11] MEDS: rOPINIRole 0.25 MG TABLET PO SCH (20:54)
[2017-05-12] MEDS: predniSONE 1 MG TABLET PO SCH (09:01)
[2017-05-12] MEDS: PANTOPRAZOLE 40 MG VIAL IV SCH (09:01)
[2017-05-12] MEDS: ALLOPURINOL 100 MG TABLET PO SCH (09:02)
[2017-05-12] MEDS: ALVIMOPAN 12 MG CAPSULE PO SCH (09:02)
[2017-05-12 11:00] VITALS: BP 151/88
[2017-05-12] MEDS ORDERED: cefOXitin 2,000 MG in SYRINGE 1 EACH IV SCH (17:00)
== END 2017-05-12 12:44 | disposition home health service (06) | DRG 330 ==
LOC: N.3E → OBSVTOIN 09:46
PROVIDERS: ADMIT Surgery; ATTEND Surgery

== ENCOUNTER 2018-03-27 19:23 | Inpatient (IN) ==
[2018-03-27 23:40] LABS: Basophils % 0.2 % (0.0-0.8); Eosinophils % 0.3 % (0.00-10.9); Hematocrit 32.8 VOL% (35.7-47.0); Hemoglobin 10.2 GM/DL (12.0-16.0); Immature Granulocytes % 0.5 %; Immature Granulocytes Absolute 0.06 #; Lymphocytes # 0.5 10*3/uL (1.4-4.0); Lymphocytes % 4.6 % (21.3-54.2); Mean Corpuscular HGB Conc 31.1 GM/DL (32-36); Mean Corpuscular Hemoglobin 29 PG (27-34); Mean Corpuscular Volume 93.2 FL (87-102); Monocytes # 1.5 10*3/uL (0.11-0.8); Monocytes % 13.4 % (1.7-12.7); Neutrophils # 9.1 10*3/uL (1.4-7.4); Platelet Count 164 T/CUMM (130-400); Red Blood Count 3.52 MC/CUMM (3.8-5.5); Red Cell Distribution Width 15.6 % (9.3-17.3); White Blood Count 11.3 T/CUMM (4-12)
[2018-03-28 00:12] LABS: Apearance,Urine CLOUDY (Clear); Bilirubin,Urine Negative (Negative); Blood, Urine Moderate mg/dL (Negative); Glucose,Urine (UA) Negative (Negative); Ketones,Urine Negative (Negative); Mucus,Urine Many /LPF (Occasional); Nitrite,Urine Positive (Negative); Protein,Urine 100 MG/DL; RBC,Urine 11 /HPF (0-4); Urine Color Amber (Yellow); Urine Specific Gravity 1.019 (1.001-1.035); Urine Urobilinogen < 2.0 EU/DL (0.2-1.0); WBC,Urine 1170 /HPF (0-6)
[2018-03-28 00:16] LABS: Lymphocytes 4 % (20-55); Segmented Neutrophils 91 % (50-85); Total Cells Counted 100
[2018-03-28 00:17] LABS: Albumin 2.9 G/DL (3.4-5.0); Bilirubin,Total 1.2 MG/DL (0.2-1.0); Calcium 9.2 MG/DL (8.5-10.1); Osmolality,Calculated 264.5 MOS/KG (273-304); Platelet Estimate Adequate; Polychromasia Few; Potassium 4.1 MMOL/L (3.5-5.1); Total Protein 7.9 G/DL (6.4-8.3)
[2018-03-28] MEDS ORDERED: SODIUM CHLORIDE 0.9% 1,000 ML IV STA (00:49)
[2018-03-28] MEDS ORDERED: cefTRIAXone 250 MG VIAL IV STA (00:49)
[2018-03-28] MEDS ORDERED: cefTRIAXone 1,000 MG VIAL ONE (01:02)
[2018-03-28] MEDS ORDERED: LACTULOSE 20 GM/30 ML UDCUP PO PRN (02:35)
[2018-03-28] MEDS ORDERED: ONDANSETRON 4 MG/2 ML VIAL IV PRN (02:35)
[2018-03-28] MEDS ORDERED: ACETAMINOPHEN 325 MG TABLET PO PRN (02:35)
[2018-03-28] MEDS ORDERED: MORPHINE 4 MG/1 ML VIAL IV PRN (02:35)
[2018-03-28] MEDS ORDERED: traZODone 50 MG TABLET PO PRN (02:35)
[2018-03-28] MEDS ORDERED: PROMETHAZINE 25 MG/1 ML VIAL IM PRN (02:35)
[2018-03-28] MEDS ORDERED: diphenhydrAMINE CAP 25 MG CAPSULE PO PRN (02:35)
[2018-03-28] MEDS ORDERED: SODIUM CHLORIDE 0.9% 1,000 ML IV SCH (03:00)
[2018-03-28] MEDS ORDERED: LEVOFLOXACIN INJ 750 MG in PREMIX 1 EACH IV SCH (04:00)
[2018-03-28] MEDS ORDERED: rOPINIRole 1 MG TABLET PO PRN (04:24)
[2018-03-28 05:58] LABS: Basophils % 0.1 % (0.0-0.8); Eosinophils % 0.1 % (0.00-10.9); Hematocrit 30.9 VOL% (35.7-47.0); Hemoglobin 9.6 GM/DL (12.0-16.0); Immature Granulocytes % 0.6 %; Immature Granulocytes Absolute 0.05 #; Lymphocytes # 0.4 10*3/uL (1.4-4.0); Mean Corpuscular HGB Conc 31.1 GM/DL (32-36); Mean Corpuscular Hemoglobin 29 PG (27-34); Mean Corpuscular Volume 92.8 FL (87-102); Mean Platelet Volume 10.5 FL (9.6-12.0); Monocytes % 11.9 % (1.7-12.7); Neutrophils # 6.9 10*3/uL (1.4-7.4); Neutrophils % 82.3 % (38.7-73.9); Platelet Count 153 T/CUMM (130-400); Red Blood Count 3.33 MC/CUMM (3.8-5.5); Red Cell Distribution Width 15.5 % (9.3-17.3); White Blood Count 8.4 T/CUMM (4-12)
[2018-03-28 06:28] LABS: Albumin 2.6 G/DL (3.4-5.0); Calcium 8.6 MG/DL (8.5-10.1); Osmolality,Calculated 269.1 MOS/KG (273-304); Potassium 3.8 MMOL/L (3.5-5.1); Total Protein 7.2 G/DL (6.4-8.3)
[2018-03-28] MEDS ORDERED: PANTOPRAZOLE 40 MG TABLET PO SCH (09:00)
[2018-03-28] MEDS ORDERED: [UNRECOGNIZED DRUG - OTHER] PO SCH (09:00)
[2018-03-28] MEDS ORDERED: TIPIRACIL HCL PO SCH (09:00)
[2018-03-28] MEDS ORDERED: [UNRECOGNIZED DRUG - OTHER] PO SCH (09:00)
[2018-03-28] MEDS ORDERED: TRIFLURIDINE PO SCH ×2 (09:00)
[2018-03-28 12:39] VITALS: BP 127/89
[2018-03-28] MEDS ORDERED: GABAPENTIN 300 MG CAPSULE PO SCH (21:00)
[2018-03-28] MEDS ORDERED: TAMSULOSIN 0.4 MG CAPSULE PO SCH (21:00)
== END 2018-03-28 15:59 | disposition hospice, home (50) | DRG 690 ==
LOC: N.ED 19:23 → N.EDINP 03-28 02:35 → N.3E 03-28 03:55
PROVIDERS: ADMIT Internal Medicine Geriatric Medicine; ATTEND Internal Medicine Geriatric Medicine